=== PATIENT | male | born 1965 | race African-American/Black ===

== ENCOUNTER 2021-05-22 18:27 | Emergency (ER) | payer SELFPAY | END 2021-05-22 20:22 | disposition home or self-care (01) | LOC: ERS 18:27 | DX: S39.012A Strain of muscle, fascia and tendon of lower back, initial encounter (principal); V43.52XA Car driver injured in collision with other type car in traffic accident, initial encounter; E11.9 Type 2 diabetes mellitus without complications | CPT/HCPCS: 72100 ==